=== PATIENT | male | born 1945 | race Caucasian/White ===

== ENCOUNTER 2016-12-22 12:28 | Inpatient (IN) ==
--- NOTE | 2016-12-22 12:53 | Emergency Department Note ---
Arrival - Arrival Chief Complaint: Nausea/Vomiting/Diarrhea Stated Complaint: NAUSEA-VOMITING ED Nursing Triage Note: FROM [facility]-PT WITH 3-DAY HX OF NAUSEA- VOMITING-DENIES DIARRHEA-PAIN Mode of Arrival: Stretcher Source: Patient Time Seen by Provider: 12/22/16 12:36 - History of Present Illness HPI Narrative: 71 y/o white male presents to the ER complaining of N/V and decreased appetite for 1-2 weeks. Reports he currently is in [facility] rehab after having a stroke on 12/06/16. Patient was instructed to come to come to ER to be admitted to see GI. Denies abdominal pain, fever, or urinary symptoms. Past medical history significant for CVA, cardiac stents, GERD, IDDM, and HTN. PCP: Dr. Dozier. Onset (ago): day(s) (3) Severity: mild Quality: cramping Allergies/Adverse Reactions: Allergies Allergy/AdvReac Type Severity Reaction Status Date / Time codeine Allergy Unknown/Unable Verified 12/01/16 07:53 to obtain Home Medications: Home Medications Medication Instructions Recorded Confirmed Type Insulin Aspart [NovoLOG] 16 unit SUBCUT TID W/MEALS 06/01/15 12/22/16 History Carvedilol [Coreg] 25 mg PO BID 10/09/15 12/22/16 History Latanoprost [Latanoprost 0.005 % 1 drop BOTH EYES BEDTIME 10/09/15 12/22/16 History Oph Soln] Cyanocobalamin (Vitamin B-12) 1,000 mcg PO DAILY 11/30/16 12/22/16 History [Vitamin B-12] Insulin Glargine,Hum.rec.anlog 56 units SUBCUT BEDTIME 12/01/16 12/22/16 History [Toujeo SoloStar] Aspirin EC Tab 81 mg PO DAILY #30 tablet 12/02/16 12/22/16 Rx Ticagrelor [Brilinta] 90 mg PO BID #60 tablet 12/02/16 12/22/16 Rx Brimonidine 0.1% Oph Soln 1 drop BOTH EYES TID 12/06/16 12/22/16 History [Alphagan P 0.1% Oph Soln] Docusate Sodium Cap [Colace Cap] 100 mg PO BID capsule 12/09/16 12/22/16 Rx Insulin Regular [HumuLIN R] See Protocol SUBCUT ACHS unit 12/09/16 12/22/16 Rx Lactulose Liquid [Chronulac] 10 gm PO DAILY PRN #0 12/09/16 12/22/16 Rx Sertraline [Zoloft] 100 mg PO DAILY tablet 12/09/16 12/22/16 Rx Zaleplon [Sonata] 5 mg PO BEDTIME capsule 12/09/16 12/22/16 Rx amLODIPine [Norvasc] 10 mg PO DAILY tablet 12/09/16 12/22/16 Rx Rosuvastatin Calcium 10 mg PO DAILY #0 12/21/16 12/22/16 Rx Review of System - Review of System 12 point system: reviewed and no additional remarkable complaints except as stated - Review of System Gastrointestinal: Present: nausea, vomiting Medical,Surgical,& Family Hx - Medical History Cardio: History of: CAD, Hypertension, PVD, Cardiovascular Problems No history of: Aneurysm, Cardiac Dysrhythmia, Cerebrovascular Disease, Congenital Heart Disease, CHF, [place], Pacemaker, Valvular Heart Disease Psychological: History of: Anxiety Disorders No history of: ADHD, Behavior Problems, Bipolar Disorder, Depression, Previous Suicide Attempt, Psychiatric/Substance Abuse Tx, Schizophrenia, Violent Behavior, Psychiatric Problems Neurology: History of: Peripheral Neuropathy, TIA No history of: Brain Aneurysm, Cerebral Hemorrhage, Cerebrovascular Accident , Cerebral Palsy, Dementia, Migraine, Multiple Sclerosis, Parkinson's Disease, Seizures, Vertigo, Neurologocal Cancer HEENT: History of: Eye Problem (macular degeneration), Glaucoma, HEENT Problems No history of: Ear Problem, Dental Problems, Oral Cancer Endocrine: History of: Diabetes Mellitus (IDDM), Dyslipidemia No history of: Adrenal Disease, Diabetes Mellitus (NIDDM), Thyroid Disorder, Endocrine Cancer, Endocrine Problems Rheumatology: No history of;: Fibromyalgia, Gout, Myasthenia Gravis, Psoriasis, Rheumatoid Arthritis, Sjogrens, Systemic Lupus Erythematosus, Rheumatological Problems Respiratory: No history of: Asthma, Bronchitis, COPD, Intubation, Obstructive Sleep Apnea , Pulmonary Embolism, Pulmonary Hypertension, Pneumonia, Lung Cancer, Respiratory Problems Renal: History of: Renal (Kidney) Cancer No history of: Dialysis, Renal Failure, Renal Problems Genitourinary: No history of: Bladder Problem, Kidney Stones, Prostate Problems, Recurring Urinary Tract Infections, Genitourinary Cancer (renal cell carcinoma), Problems Gastrointestinal: History of: Hemorrhoids No history of: Bowel Obstruction, Clostridium Difficile, Crohn's Disease, Diverticulitis/ Diverticulosis, Esophageal Varices, GERD, Gastrointestinal Bleed , Hematochezia, Hepatitis, Liver Problems, Pancreatitis, Polyps, Ulcerative Colitis, Gastrointestinal Cancer, GI Problems Musculoskeletal: History of: Back/Neck Problems (removed cysts from neck) No history of: Amputation, Degenerative Disk Disease, Herniated Disk, Osteoporosis, Musculoskeletal Cancer, Musculoskeletal Problems Hematology: No history of: Anemia, Blood Transfusion Reaction, Bleeding Problems, Clotting Problems, Sickle Cell Disease, Hematologic Cancer, Blood Disorders Reproductive: No histroy: Penile Disorder, Sexually Transmitted Disease, Reproductive Cancer, Reproductive Problems Other: History of: Cancer No history of: Anesthesia Reactions, Anaphylaxis, Eczema, HIV, Malignant Hyperthermia, MRSA, Vancomycin-Resistant Enterococci, Skin Problems, Miscellaneous Medical Problems - Surgical History Cardiac Surgeries: Sugical HX of: Cardiac Catheterization (stents x6) Patient Denies: Femoral-Popliteal Bypass Graft, Cardiac Surgery, Carotid Endarterectomy, Internal Defibrillator, Vascular Access Devices Thoracic Surgeries: Surgical HX of;: Kidney (Renal Surgery) (One kidney R/T Ca) , Nephrectomy Patient denies;: Lithotripsy, Organ Transplant, Lobectomy Neurologic Surgeries: Patient denies: Brain Aneurysm, Cerebral Hemorrhage, Neurologic Surgery HEENT Surgeries: Surgical HX of: Eye Surgery (bilateral cataracts removed with lens replacements) Patient denies: Carotid Endarterectomy, Thyroid Surgery, Tonsilectomy & Adenoidectomy Abdominal Surgeries: Surgical HX of: Colonoscopy, EGD Patient denies: Abdominal Surgery, Appendectomy, Cholecystectomy, Gastric Bypass Surgery, Hernia Repair, Splenectomy Reproductive Surgeries: Surgical HX of;: Breast Surgery, Cystoscopy, Genitourinary Surgery (left kidney removed) Patient denies;: Prostate Surgery, Vasectomy Orthopedic Surgeries: Patient denies;: Implanted Devices, Orthopedic Surgery, Spinal Surgery, Total Hip Replacement, Total Knee Replacement - Family History Family History: Reports;: Family Cancer (father had lung ca, mother breast ca,) , Family Diabetes (mother), Family Hypertension (mother) Denies;: Family Anesthesia Reaction, Family Heart Disease, Family Psychiatric Problems, Family Stroke - Social History Smoking Status: Former smoker Exam Vital Signs: Vital Signs Temperature 98.2 F 12/22/16 14:05 Pulse Rate 70 12/22/16 14:20 Respiratory Rate 20 12/22/16 14:20 Blood Pressure 142/83 12/22/16 14:20 O2 Sat by Pulse Oximetry 99 12/22/16 14:20 - General General appearance: alert, in no apparent distress - ENT ENT exam: Present: normal exam, normal oropharynx, mucous membranes moist - Chest Chest inspection: Present: normal inspection - Respiratory Respiratory exam: Present: normal lung sounds bilaterally - Cardiovascular Cardiovascular exam: Present: regular rate, normal rhythm, normal heart sounds - Abdominal Exam Abdominal exam: Present: soft, normal bowel sounds. Absent: tenderness - Extremities Exam Extremities exam: Present: normal inspection, full ROM - Back Exam Back exam: Absent: CVA tenderness (R), CVA tenderness (L) - Neurological Exam Neurological exam: Present: alert, oriented X3, other (left sided weakness- CVA 11/2016) - Psychiatric Psychiatric exam: Present: normal affect, normal mood - Skin Skin exam: Present: warm, dry Course - Consultations Consultation #1: Dr. Dozier Time: 14:35 (Discussed case with Dr. Dozier. Will admit patient ) Results - Labs CBC & BMP: 12/22/16 13:41 12/22/16 13:41 Lab Results: I have reviewed the patients labs Disposition Clinical Impression: Vomiting, Nausea, Anorexia Disposition: Still a Patient Condition: Stable
--- NOTE | 2016-12-22 13:26 | XRay Report ---
History: Nausea, vomiting, constipation Date: 12/22/2016 Study: Flat and decubitus views abdomen Comparison exam: No previous similar There is no evidence of pneumoperitoneum. The bowel gas pattern is nonobstructive without gross mass lesion. There is a 7.9 mm calcification compatible with renal stone overlying the lower pole of the right kidney. There is a column of small nodular calcifications over the right hemipelvis, measuring 5 mm diameter and less. These could represent stone fragments in the distal ureter. Surgical clips are noted in the left mid upper abdomen. There is mild lumbar spondylosis. Impression: Right nephrolithiasis and suspected distal right ureterolithiasis. No definite acute process otherwise PROCEDURE INTERPRETED AT [facility] DEPARTMENT OF RADIOLOGY Final Report Signed by: Dr. Poonam Love
--- NOTE | 2016-12-22 13:50 | EKG Report ---
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
[2016-12-22 13:54] LABS: Basophils % 0.3 % (0.0-0.8); Eosinophils # 0.1 10*3/uL (0.0-0.87); Eosinophils % 0.9 % (0.00-10.9); Hematocrit 42.4 VOL% (42.0-52.0); Hemoglobin 13.7 GM/DL (14.0-18.0); Immature Granulocytes % 0.5 %; Immature Granulocytes Absolute 0.06 #; Lymphocytes % 16.2 % (21.2-54.2); Mean Corpuscular HGB Conc 32.3 GM/DL (32-36); Mean Corpuscular Hemoglobin 27 PG (27-34); Mean Platelet Volume 9.8 FL (9.6-12.0); Monocytes # 0.8 10*3/uL (0.11-0.8); Monocytes % 6.6 % (1.7-12.7); Neutrophils # 9.5 10*3/uL (1.4-7.4); Neutrophils % 75.5 % (38.7-73.9); Platelet Count 298 T/CUMM (130-400); Red Blood Count 5.05 MC/CUMM (3.8-5.5); Red Cell Distribution Width 13.5 % (9.3-17.3); White Blood Count 12.6 T/CUMM (4-12)
[2016-12-22 14:02] LABS: Apearance,Urine Slightly Hazy (Clear); Bilirubin,Urine Negative (Negative); Blood, Urine Negative (Negative); Glucose,Urine (UA) 50 mg/dL (Negative); Ketones,Urine Negative (Negative); Mucus,Urine Occasional /LPF (Occasional); Nitrite,Urine Negative (Negative); Protein,Urine >=500 MG/DL; RBC,Urine <1 /HPF (0-4); Squamous Epithelial Cell,Urine Occasional /HPF (0-10); Urine Color Yellow (Yellow); Urine Specific Gravity 1.015 (1.001-1.035); Urine Urobilinogen < 2.0 EU/DL (0.2-1.0); WBC,Urine 1 /HPF (0-6)
[2016-12-22 14:16] LABS: Alanine Aminotransferase 44 U/L (16-61); Albumin 3.6 G/DL (3.4-5.0); Alkaline Phosphatase 85 U/L (45-117); Aspartate Amino Transferase 38 U/L (0-37); Bilirubin,Total < 0.39 MG/DL (0.2-1.0); Blood Urea Nitrogen 44 MG/DL (7-18); Calcium 9.6 MG/DL (8.5-10.1); Glucose 165 MG/DL (74-106); Osmolality,Calculated 282.2 MOS/KG (273-304); Sodium 134 MMOL/L (136-145); Total Protein 8.1 G/DL (6.4-8.3)
[2016-12-22] MEDS ORDERED: SODIUM CHLORIDE 0.9% 500 ML IV STA (14:27)
[2016-12-22] MEDS ORDERED: LACTULOSE 20 GM/30 ML UDCUP PO PRN (16:41)
[2016-12-22] MEDS ORDERED: ACETAMINOPHEN 500 MG TABLET PO PRN (16:41)
[2016-12-22] MEDS ORDERED: DEXTROSE 50% 25 GM/50 ML VIAL IV PRN (16:47)
[2016-12-22] MEDS ORDERED: GLUCAGON 1 MG VIAL IM PRN (16:47)
--- NOTE | 2016-12-22 17:20 | Family Practice History&Phys ---
Assessment and Plan (1) Nausea Status: Acute Assessment and plan: 12/22/2016: We will keep him on Zofran for now. I am going to hold him n.p.o. tonight and see if GI will to do an upper scope on him tomorrow Current Visit: Yes (2) Acute CVA (cerebrovascular accident) Status: Acute Assessment and plan: 12/22/2016: He is getting rehab for this is currently on a blood thinner to hopefully prevent recurrence. Current Visit: No (3) Alzheimer's dementia Status: Chronic Assessment and plan: 12/22/2016: He does have medication for Alzheimer's dementia. Current Visit: No (4) Cerebrovascular accident Status: Chronic Assessment and plan: 12/22/2016:. Stable now he does have some residual deficits particularly on his left arm and left leg Current Visit: No (5) Diabetes Status: Chronic Assessment and plan: 12/22/2016: We will put him on a sliding scale continue on current medications Current Visit: No History of Present Illness Chief complaint: Intractable nausea, abdominal discomfort, recurrent constipation History of present illness: Mr. Melendez is a 71 year old male A patient who is status post CVA involving the left side of the body including the left arm, left facial muscles and left leg. He on has been in rehab over the past approximately 2 weeks. Family states that he is been some belligerent about doing rehab and avoiding it if he can. In addition, he became constipated the latter part of last week. He did have a very strong and forceful bowel movement on Tuesday it was a "blowout". Since then he has not had another bowel movement and family is concerned that he may be having recurrent constipation but also now is having some nausea and refusing to eat. I did check his weight from the last visit and he has not lost any weight but family (his ) states that he has. He is not having any abdominal pain now but states that his "stomach has been hurting a lot lately". I do not appreciate any peritoneal signs. He does have bowel sounds but somewhat hypoactive. There is a little mild abdominal distention but the abdominal x- rays were essentially negative except for findings of possible right ureteral lithiasis. (Because of this I am going to go ahead and do a renal colic CT scan on him). His lab was normal including a CBC and a BMP and amylase. Because of this situation and the fact that they had to bring it back up here from rehab because he was having this recurrent nausea and going to admit him in get GI to see him for clarity. Also have already ordered some test on him. He is in no acute distress we will see how he eats tonight. Home Medications Medication Instructions Recorded Confirmed Type Insulin Aspart [NovoLOG] 16 unit SUBCUT TID W/MEALS 06/01/15 12/22/16 History Carvedilol [Coreg] 25 mg PO BID 10/09/15 12/22/16 History Latanoprost [Latanoprost 0.005 % 1 drop BOTH EYES BEDTIME 10/09/15 12/22/16 History Oph Soln] Cyanocobalamin (Vitamin B-12) 1,000 mcg PO DAILY 11/30/16 12/22/16 History [Vitamin B-12] Insulin Glargine,Hum.rec.anlog 56 units SUBCUT BEDTIME 12/01/16 12/22/16 History [Mildred Noble] Aspirin EC Tab 81 mg PO DAILY #30 tablet 12/02/16 12/22/16 Rx Ticagrelor [Brilinta] 90 mg PO BID #60 tablet 12/02/16 12/22/16 Rx Brimonidine 0.1% Oph Soln 1 drop BOTH EYES TID 12/06/16 12/22/16 History [Alphagan P 0.1% Oph Soln] Docusate Sodium Cap [Colace Cap] 100 mg PO BID capsule 12/09/16 12/22/16 Rx Insulin Regular [HumuLIN R] See Protocol SUBCUT ACHS unit 12/09/16 12/22/16 Rx Lactulose Liquid [Chronulac] 10 gm PO DAILY PRN #0 12/09/16 12/22/16 Rx Sertraline [Zoloft] 100 mg PO DAILY tablet 12/09/16 12/22/16 Rx Zaleplon [Sonata] 5 mg PO BEDTIME capsule 12/09/16 12/22/16 Rx amLODIPine [Norvasc] 10 mg PO DAILY tablet 12/09/16 12/22/16 Rx Rosuvastatin Calcium 10 mg PO DAILY #0 12/21/16 12/22/16 Rx Allergies Allergy/AdvReac Type Severity Reaction Status Date / Time codeine Allergy Unknown/Unable Verified 12/01/16 07:53 to obtain 12 point system: reviewed and no additional remarkable complaints except as stated (That mentioned in the history and physical.) - EENT Eyes: Absent: blurry vision - Cardiovascular Cardiovascular: Absent: diaphoresis - Gastrointestinal Gastrointestinal: Present: change in bowel habits, nausea. Absent: vomiting Medical,Surgical,& Family Hx - Medical History Cardio: History of: CAD, Hypertension, PVD, Cardiovascular Problems No history of: Aneurysm, Cardiac Dysrhythmia, Cerebrovascular Disease, Congenital Heart Disease, CHF, [place], Pacemaker, Valvular Heart Disease Psychological: History of: Anxiety Disorders No history of: ADHD, Behavior Problems, Bipolar Disorder, Depression, Previous Suicide Attempt, Psychiatric/Substance Abuse Tx, Schizophrenia, Violent Behavior, Psychiatric Problems Neurology: History of: Peripheral Neuropathy, TIA No history of: Brain Aneurysm, Cerebral Hemorrhage, Cerebrovascular Accident , Cerebral Palsy, Dementia, Migraine, Multiple Sclerosis, Parkinson's Disease, Seizures, Vertigo, Neurologocal Cancer HEENT: History of: Eye Problem (macular degeneration), Glaucoma, HEENT Problems No history of: Ear Problem, Dental Problems, Oral Cancer Endocrine: History of: Diabetes Mellitus (IDDM), Dyslipidemia No history of: Adrenal Disease, Diabetes Mellitus (NIDDM), Thyroid Disorder, Endocrine Cancer, Endocrine Problems Rheumatology: No history of;: Fibromyalgia, Gout, Myasthenia Gravis, Psoriasis, Rheumatoid Arthritis, Sjogrens, Systemic Lupus Erythematosus, Rheumatological Problems Respiratory: No history of: Asthma, Bronchitis, COPD, Intubation, Obstructive Sleep Apnea , Pulmonary Embolism, Pulmonary Hypertension, Pneumonia, Lung Cancer, Respiratory Problems Renal: History of: Renal (Kidney) Cancer No history of: Dialysis, Renal Failure, Renal Problems Genitourinary: No history of: Bladder Problem, Kidney Stones, Prostate Problems, Recurring Urinary Tract Infections, Genitourinary Cancer (renal cell carcinoma), Problems Gastrointestinal: History of: Hemorrhoids No history of: Bowel Obstruction, Clostridium Difficile, Crohn's Disease, Diverticulitis/ Diverticulosis, Esophageal Varices, GERD, Gastrointestinal Bleed , Hematochezia, Hepatitis, Liver Problems, Pancreatitis, Polyps, Ulcerative Colitis, Gastrointestinal Cancer, GI Problems Musculoskeletal: History of: Back/Neck Problems (removed cysts from neck) No history of: Amputation, Degenerative Disk Disease, Herniated Disk, Osteoporosis, Musculoskeletal Cancer, Musculoskeletal Problems Hematology: No history of: Anemia, Blood Transfusion Reaction, Bleeding Problems, Clotting Problems, Sickle Cell Disease, Hematologic Cancer, Blood Disorders Reproductive: No histroy: Penile Disorder, Sexually Transmitted Disease, Reproductive Cancer, Reproductive Problems Other: History of: Cancer No history of: Anesthesia Reactions, Anaphylaxis, Eczema, HIV, Malignant Hyperthermia, MRSA, Vancomycin-Resistant Enterococci, Skin Problems, Miscellaneous Medical Problems - Surgical History Cardiac Surgeries: Sugical HX of: Cardiac Catheterization (stents x6) Patient Denies: Femoral-Popliteal Bypass Graft, Cardiac Surgery, Carotid Endarterectomy, Internal Defibrillator, Vascular Access Devices Thoracic Surgeries: Surgical HX of;: Kidney (Renal Surgery) (One kidney R/T Ca) , Nephrectomy Patient denies;: Lithotripsy, Organ Transplant, Lobectomy Neurologic Surgeries: Patient denies: Brain Aneurysm, Cerebral Hemorrhage, Neurologic Surgery HEENT Surgeries: Surgical HX of: Eye Surgery (bilateral cataracts removed with lens replacements) Patient denies: Carotid Endarterectomy, Thyroid Surgery, Tonsilectomy & Adenoidectomy Abdominal Surgeries: Surgical HX of: Colonoscopy, EGD Patient denies: Abdominal Surgery, Appendectomy, Cholecystectomy, Gastric Bypass Surgery, Hernia Repair, Splenectomy Reproductive Surgeries: Surgical HX of;: Breast Surgery, Cystoscopy, Genitourinary Surgery (left kidney removed) Patient denies;: Prostate Surgery, Vasectomy Orthopedic Surgeries: Patient denies;: Implanted Devices, Orthopedic Surgery, Spinal Surgery, Total Hip Replacement, Total Knee Replacement - Family History Family History: Reports;: Family Cancer (father had lung ca, mother breast ca,) , Family Diabetes (mother), Family Hypertension (mother) Denies;: Family Anesthesia Reaction, Family Heart Disease, Family Psychiatric Problems, Family Stroke - Social History Smoking Status: Former smoker Frequency of Alcohol Use: None Type of Drug Use: None Results - Labs CBC & BMP: 12/22/16 13:41 12/22/16 13:41 Quality Measures - Stroke Onset of Symptoms Date: 12/20/16
[2016-12-22] MEDS: INSULIN LISPRO 100 UNIT/ML SUBCUT SCH ×2 (17:26→21:23)
[2016-12-22] MEDS: SODIUM CHLORIDE 0.9% 1,000 ML IV SCH (19:07)
[2016-12-22] MEDS ORDERED: INSULIN REGULAR 100 UNIT/ML SUBCUT SCH (21:00)
[2016-12-22] MEDS: INSULIN GLARGINE 100 UNIT/ML SUBCUT SCH (21:23)
[2016-12-22] MEDS: ZALEPLON 5 MG CAPSULE PO SCH (21:24)
[2016-12-22] MEDS: TICAGRELOR 90 MG TABLET PO SCH (21:25)
[2016-12-22] MEDS: DOCUSATE SODIUM 100 MG CAPSULE PO SCH (21:25)
[2016-12-22] MEDS: CARVEDILOL 25 MG TABLET PO SCH (21:25)
[2016-12-22] MEDS: BRIMONIDINE 0.1% OPH SOLN 5 ML BOTTLE BOTH EYES SCH (21:29)
[2016-12-22] MEDS: LATANOPROST 0.005% OPH SOLN 2.5 ML BOTTLE BOTH EYES SCH (21:29)
[2016-12-23] MEDS: SODIUM CHLORIDE 0.9% 1,000 ML IV SCH ×3 (03:06→22:41)
[2016-12-23] MEDS: ONDANSETRON 4 MG/2 ML VIAL IV PRN (06:08)
--- NOTE | 2016-12-23 06:14 | CT Report ---
CT of the abdomen without intravenous contrast. Indication: Urinary tract calculi. Axial images were obtained with sagittal and coronal reconstructions. Comparison is made with a previous CT angiogram of the abdomen dated May 29, 2015. Note that the pelvis is not included on this exam, so the distal ureter is not visualized. The heart is normal in size. Coronary artery calcifications are present. There is no pericardial or pleural effusion. There is atelectasis in the left lingula. There is a calcified granuloma in the right middle lobe. The liver is normal in size. The spleen is normal in size. It contains multiple calcified granulomas. The left kidney has been removed. The left adrenal gland is not delineated. It may be partially obscured by streak artifact from numerous surgical clips in the renal fossa. Alternatively, it may have been removed as well. The right adrenal gland has a normal appearance. The right kidney is normal in size, location, and contour. Within a lower pole calyx, there is a 9 mm calculus. No hydronephrosis. No hydroureter. No evidence of stone in the included portions of the right ureter. There is atrophy of portions of the pancreas. No pancreatic ductal dilatation. No pancreatic calcifications, or space occupying masses. There is moderate plaque in a normal caliber abdominal aorta. No free air or free fluid seen. No bowel dilatation. Mild degenerative changes of the spinal column. Umbilical hernia containing only fat. Impression: Right nephrolithiasis. No hydronephrosis. The CT exam was performed using one or more of the following dose reduction techniques: Automated exposure control, adjustmenT of the mA and/or kV according to patient size, or use of iterative reconstruction technique. PROCEDURE INTERPRETED AT [facility] DEPARTMENT OF RADIOLOGY Final Report Signed by: Dr. Karon Ely
[2016-12-23 07:41] LABS: Basophils % 0.4 % (0.0-0.8); Eosinophils # 0.2 10*3/uL (0.0-0.87); Eosinophils % 1.8 % (0.00-10.9); Hematocrit 41.7 VOL% (42.0-52.0); Hemoglobin 13.1 GM/DL (14.0-18.0); Immature Granulocytes % 0.4 %; Immature Granulocytes Absolute 0.04 #; Lymphocytes # 2.5 10*3/uL (1.4-4.0); Lymphocytes % 22.2 % (21.2-54.2); Mean Corpuscular HGB Conc 31.4 GM/DL (32-36); Mean Corpuscular Hemoglobin 27 PG (27-34); Mean Corpuscular Volume 84.2 FL (87-102); Mean Platelet Volume 10.3 FL (9.6-12.0); Monocytes # 0.8 10*3/uL (0.11-0.8); Monocytes % 6.8 % (1.7-12.7); Neutrophils # 7.7 10*3/uL (1.4-7.4); Neutrophils % 68.4 % (38.7-73.9); Platelet Count 252 T/CUMM (130-400); Red Blood Count 4.95 MC/CUMM (3.8-5.5); Red Cell Distribution Width 13.5 % (9.3-17.3); White Blood Count 11.2 T/CUMM (4-12)
[2016-12-23] MEDS: INSULIN LISPRO 100 UNIT/ML SUBCUT SCH ×7 (08:00→22:11)
[2016-12-23 08:15] LABS: Calcium 8.8 MG/DL (8.5-10.1); Osmolality,Calculated 290.3 MOS/KG (273-304); Potassium 4.8 MMOL/L (3.5-5.1)
[2016-12-23] MEDS: BRIMONIDINE 0.1% OPH SOLN 5 ML BOTTLE BOTH EYES SCH ×3 (09:00→20:42)
--- NOTE | 2016-12-23 10:17 | Family Practice Progress Note ---
Family Practice - PN: Subj Interval history: Patient seen this morning. He is alert and oriented for the most part. (Does have some dementia, in general). Vital signs are stable, satting 94% and weight is stable as well. He has a glucose of 118 and his CBC is normal, BMP is normal except for elevation of creatinine however this is improving day by day. Because he had possible ureterolithiasis on x-ray we did do a CAT scan renal colic which did not reveal any hydronephrosis although he has nephrolithiasis. There were no obvious stones in the ureter on this study. Today complaining of just feeling "nauseated" and some abdominal bloating. He has been eating well he has not had any vomiting and admits that he is passing gas well. Has not had a bowel movement since he has been here on the [facility]. Denies any fever and is not been having any chills. He has had these same symptoms down L in the [facility] and so I am going to get a GI consult today to see if they have any idea of what we can do to resolve some of his nausea. We are giving him antiemetics to try to help this without great success Exam (Progress Note) - Constitutional Vitals: Period Temp Pulse Resp BP Sys/Garza Pulse Ox Last 24 Hr 97.7 F-98.0 F 71-76 18-20 115-164/60-71 93-95 Exam: Generally stable, no acute distress except for the mild abdominal/diffuse discomfort. HEENT neck is supple trachea midline oropharynx is negative Cardiovascular rate is regular no gallop or rub 1/6 systolic ejection murmur Lungs generally clear no shortness of breath Abdomen soft mild diffuse tenderness only no peritoneal signs and no focal point tenderness. He has positive bowel sounds in all 4 quadrants. Extremities no clubbing cyanosis edema positive radial pulses bilateral upper extremities. Neurologically he does have left-sided deficits including the upper and lower extremities. His facial drooping has much improved Results - Labs CBC & BMP: 12/23/16 06:30 12/23/16 06:30 Assessment and Plan (1) Nausea Status: Acute Assessment and plan: 12/22/2016: We will keep him on Zofran for now. I am going to hold him n.p.o. tonight and see if GI will to do an upper scope on him tomorrow 12/23/2016 continues to have nausea. We are going to get a GI consult on, some of this could be related to medications including Brilinta, but unsure Current Visit: Yes (2) Acute CVA (cerebrovascular accident) Status: Acute Assessment and plan: 12/22/2016: He is getting rehab for this is currently on a blood thinner to hopefully prevent recurrence. 12/23/2016: This is stable at present. He continues to have some left-sided deficits which are at least subacute and may become chronic Current Visit: No (3) Alzheimer's dementia Status: Chronic Assessment and plan: 12/22/2016: He does have medication for Alzheimer's dementia. Current Visit: No (4) Cerebrovascular accident Status: Chronic Assessment and plan: 12/22/2016:. Stable now he does have some residual deficits particularly on his left arm and left leg Current Visit: No (5) Diabetes Status: Chronic Assessment and plan: 12/22/2016: We will put him on a sliding scale continue on current medications Current Visit: No Quality Measures - Stroke Onset of Symptoms Date: 12/20/16
--- NOTE | 2016-12-23 11:21 | Gastrointestinal Consult Note ---
Assessment and Plan (1) Nausea Status: Acute Assessment and plan: 5/4-to 3 week history of nausea without emesis. Complaints of vague abdominal discomfort/pain at times with meals. No history of peptic ulcer disease. Obtain gallbladder ultrasound today. Start clear liquid diet following ultrasound. Further plan an addendum to followed by Dr. Love. Current Visit: Yes History of Present Illness Chief complaint: Persistent nausea History of present illness: Mr. Melendez is a 71 year old male who was admitted to our facility on yesterday with complaints of intractable nausea and abdominal discomfort. Patient has been inpatient at [facility] for rehab therapy following a CVA that occurred approximately 3 weeks ago. Patient's states that the Tuesday before patient had cardiac stents placed in 5 days later he had a CVA. He was started on Brilinta at that time and was discharged to [facility] for continued physical therapy. Patient states that for the last 2-3 weeks he has had persistent nausea that followed after those events. He denies any vomiting with the nausea but states every time he moves or tries to eat he becomes nauseated and this has prevented him from taking in very much oral nutrition. He does complain of some mild dizziness however states this is not necessarily associated with nausea. He was taking Bactrim, per patient, for UTI a couple weeks ago and states they felt this was causing his nausea and it was stopped however the symptoms were not relieved. He denies any abdominal pain but just has complaints of abdominal discomfort when he is nauseated. He has had some episodes of constipation however states he had a large bowel movement on yesterday and denies any melena or hematochezia associated with this. He denies any history of peptic ulcer disease. Denies any dysphagia or odynophagia. Denies any peptic ulcer disease in his history. Denies family history of gallbladder disease. Denies any recent weight loss, fever or chills. He did initially have some complaints of abdominal pain that seemed to be worse when he did eat however he is not currently complaining of that. He is diabetic however his blood sugars have been very well controlled per who is at bedside. His last EGD was done in 2006 with findings of esophageal stricture with dilation and hiatal hernia. His last C scope was done in 2002 with no abnormal findings noted. On admission he was found to have right nephrolithiasis without hydronephrosis. BUN/creatinine ratio is 20. Home Medications Medication Instructions Recorded Confirmed Type Insulin Aspart [NovoLOG] 16 unit SUBCUT TID W/MEALS 06/01/15 12/22/16 History Carvedilol [Coreg] 25 mg PO BID 10/09/15 12/22/16 History Latanoprost [Latanoprost 0.005 % 1 drop BOTH EYES BEDTIME 10/09/15 12/22/16 History Oph Soln] Cyanocobalamin (Vitamin B-12) 1,000 mcg PO DAILY 11/30/16 12/22/16 History [Vitamin B-12] Insulin Glargine,Hum.rec.anlog 56 units SUBCUT BEDTIME 12/01/16 12/22/16 History [Mildred Noble] Aspirin EC Tab 81 mg PO DAILY #30 tablet 12/02/16 12/22/16 Rx Ticagrelor [Brilinta] 90 mg PO BID #60 tablet 12/02/16 12/22/16 Rx Brimonidine 0.1% Oph Soln 1 drop BOTH EYES TID 12/06/16 12/22/16 History [Alphagan P 0.1% Oph Soln] Docusate Sodium Cap [Colace Cap] 100 mg PO BID capsule 12/09/16 12/22/16 Rx Insulin Regular [HumuLIN R] See Protocol SUBCUT ACHS unit 12/09/16 12/22/16 Rx Lactulose Liquid [Chronulac] 10 gm PO DAILY PRN #0 12/09/16 12/22/16 Rx Sertraline [Zoloft] 100 mg PO DAILY tablet 12/09/16 12/22/16 Rx Zaleplon [Sonata] 5 mg PO BEDTIME capsule 12/09/16 12/22/16 Rx amLODIPine [Norvasc] 10 mg PO DAILY tablet 12/09/16 12/22/16 Rx Rosuvastatin Calcium 10 mg PO DAILY #0 12/21/16 12/22/16 Rx Allergies Allergy/AdvReac Type Severity Reaction Status Date / Time codeine Allergy Unknown/Unable Verified 12/01/16 07:53 to obtain Medical,Surgical,& Family Hx - Medical History Cardio: History of: CAD, Hypertension, PVD, Cardiovascular Problems No history of: Aneurysm, Cardiac Dysrhythmia, Cerebrovascular Disease, Congenital Heart Disease, CHF, VT, Pacemaker, Valvular Heart Disease Psychological: History of: Anxiety Disorders No history of: ADHD, Behavior Problems, Bipolar Disorder, Depression, Previous Suicide Attempt, Psychiatric/Substance Abuse Tx, Schizophrenia, Violent Behavior, Psychiatric Problems Neurology: History of: Peripheral Neuropathy, TIA No history of: Brain Aneurysm, Cerebral Hemorrhage, Cerebrovascular Accident , Cerebral Palsy, Dementia, Migraine, Multiple Sclerosis, Parkinson's Disease, Seizures, Vertigo, Neurologocal Cancer HEENT: History of: Eye Problem (macular degeneration), Glaucoma, HEENT Problems No history of: Ear Problem, Dental Problems, Oral Cancer Endocrine: History of: Diabetes Mellitus (IDDM), Dyslipidemia No history of: Adrenal Disease, Diabetes Mellitus (NIDDM), Thyroid Disorder, Endocrine Cancer, Endocrine Problems Rheumatology: No history of;: Fibromyalgia, Gout, Myasthenia Gravis, Psoriasis, Rheumatoid Arthritis, Sjogrens, Systemic Lupus Erythematosus, Rheumatological Problems Respiratory: No history of: Asthma, Bronchitis, COPD, Intubation, Obstructive Sleep Apnea , Pulmonary Embolism, Pulmonary Hypertension, Pneumonia, Lung Cancer, Respiratory Problems Renal: History of: Renal (Kidney) Cancer No history of: Dialysis, Renal Failure, Renal Problems Genitourinary: No history of: Bladder Problem, Kidney Stones, Prostate Problems, Recurring Urinary Tract Infections, Genitourinary Cancer (renal cell carcinoma), Problems Gastrointestinal: History of: Hemorrhoids No history of: Bowel Obstruction, Clostridium Difficile, Crohn's Disease, Diverticulitis/ Diverticulosis, Esophageal Varices, GERD, Gastrointestinal Bleed , Hematochezia, Hepatitis, Liver Problems, Pancreatitis, Polyps, Ulcerative Colitis, Gastrointestinal Cancer, GI Problems Musculoskeletal: History of: Back/Neck Problems (removed cysts from neck) No history of: Amputation, Degenerative Disk Disease, Herniated Disk, Osteoporosis, Musculoskeletal Cancer, Musculoskeletal Problems Hematology: No history of: Anemia, Blood Transfusion Reaction, Bleeding Problems, Clotting Problems, Sickle Cell Disease, Hematologic Cancer, Blood Disorders Reproductive: No histroy: Penile Disorder, Sexually Transmitted Disease, Reproductive Cancer, Reproductive Problems Other: History of: Cancer No history of: Anesthesia Reactions, Anaphylaxis, Eczema, HIV, Malignant Hyperthermia, MRSA, Vancomycin-Resistant Enterococci, Skin Problems, Miscellaneous Medical Problems - Surgical History Cardiac Surgeries: Sugical HX of: Cardiac Catheterization (stents x6) Patient Denies: Femoral-Popliteal Bypass Graft, Cardiac Surgery, Carotid Endarterectomy, Internal Defibrillator, Vascular Access Devices Thoracic Surgeries: Surgical HX of;: Kidney (Renal Surgery) (One kidney R/T Ca) , Nephrectomy Patient denies;: Lithotripsy, Organ Transplant, Lobectomy Neurologic Surgeries: Patient denies: Brain Aneurysm, Cerebral Hemorrhage, Neurologic Surgery HEENT Surgeries: Surgical HX of: Eye Surgery (bilateral cataracts removed with lens replacements) Patient denies: Carotid Endarterectomy, Thyroid Surgery, Tonsilectomy & Adenoidectomy Abdominal Surgeries: Surgical HX of: Colonoscopy, EGD Patient denies: Abdominal Surgery, Appendectomy, Cholecystectomy, Gastric Bypass Surgery, Hernia Repair, Splenectomy Reproductive Surgeries: Surgical HX of;: Breast Surgery, Cystoscopy, Genitourinary Surgery (left kidney removed) Patient denies;: Prostate Surgery, Vasectomy Orthopedic Surgeries: Patient denies;: Implanted Devices, Orthopedic Surgery, Spinal Surgery, Total Hip Replacement, Total Knee Replacement - Family History Family History: Reports;: Family Cancer (father had lung ca, mother breast ca,) , Family Diabetes (mother), Family Hypertension (mother) Denies;: Family Anesthesia Reaction, Family Heart Disease, Family Psychiatric Problems, Family Stroke - Social History Smoking Status: Former smoker Frequency of Alcohol Use: None Type of Drug Use: None 12 point system: reviewed and no additional remarkable complaints except as stated - Constitutional Constitutional: Present: as per HPI - EENT Eyes: Present: as per HPI Ears: Present: as per HPI Nose, mouth and throat: Present: as per HPI - Cardiovascular Cardiovascular: Present: as per HPI - Respiratory Respiratory: Present: as per HPI - Gastrointestinal Gastrointestinal: Present: as per HPI, nausea - Genitourinary Genitourinary: Present: as per HPI - Musculoskeletal Musculoskeletal: Present: as per HPI - Neurological Neurological: Present: as per HPI - Psychiatric Psychiatric: Present: as per HPI - Endocrine Endocrine: Present: as per HPI - Hematologic/Lymphatic Hematologic/Lymphatic: Present: as per HPI Exam - Constitutional Vitals: Period Temp Pulse Resp BP Sys/Garza Pulse Ox Last 24 Hr 97.7 F-98.0 F 71-76 18-20 115-164/60-71 93-95 General appearance: normal weight, no acute distress - Head Head exam: Present: normal inspection, normocephalic - Eye Eye exam: Present: other (Lids and conjunctivae unremarkable). Absent: scleral icterus - ENT ENT exam: Present: normal exam, normal oropharynx - Neck Neck exam: Present: normal inspection - Respiratory Respiratory exam: Present: clear to auscultation bilaterally. Absent: rales, rhonchi, wheezes - Cardiovascular Cardiovascular exam: Present: regular rate and rhythm. Absent: diastolic murmur , JVD, systolic murmur - GI/Abdominal GI/Abdominal exam: Present: normal bowel sounds, soft. Absent: ascites, distended, mass, organomegaly, tenderness - Extremities Exam Extremities exam: Present: normal inspection, full ROM - Back Exam Back exam: Present: normal inspection - Neurological Exam Neurological exam: Present: alert, oriented X3 - Psychiatric Psychiatric exam: Present: normal affect, normal mood - Skin Skin exam: Present: normal color, warm, dry Results - Labs CBC & BMP: 12/23/16 06:30 12/23/16 06:30 Lab Results: I have reviewed the past 24 hour labs Quality Measures - Stroke Onset of Symptoms Date: 12/20/16
[2016-12-23] MEDS: CARVEDILOL 25 MG TABLET PO SCH ×2 (13:59→20:42)
[2016-12-23] MEDS: DOCUSATE SODIUM 100 MG CAPSULE PO SCH ×2 (13:59→20:42)
[2016-12-23] MEDS: TICAGRELOR 90 MG TABLET PO SCH (13:59)
[2016-12-23] MEDS: ASPIRIN EC 81 MG TABLET PO SCH (14:24)
[2016-12-23] MEDS: amLODIPine 10 MG TABLET PO SCH (14:25)
[2016-12-23] MEDS: CYANOCOBALAMIN 500 MCG TABLET PO SCH (14:25)
[2016-12-23] MEDS: ROSUVASTATIN 10 MG TABLET PO SCH (14:25)
[2016-12-23] MEDS: SERTRALINE 100 MG TABLET PO SCH (14:25)
--- NOTE | 2016-12-23 15:00 | Ultrasound Report ---
Gallbladder ultrasound. Indication: The liver is normal in size and parenchymal echogenicity. No focal liver lesions are identified. No gallstones are seen. There is no gallbladder wall thickening or fluid around the gallbladder. The common duct measures 4.5 mm. The right kidney has a normal appearance. The pancreas has a normal appearance. Impression: No abnormality is seen. PROCEDURE INTERPRETED AT [facility] DEPARTMENT OF RADIOLOGY Final Report Signed by: Dr. Karon Ely
[2016-12-23] MEDS ORDERED: CLOPIDOGREL 75 MG TABLET PO ONE (17:25)
[2016-12-23] MEDS: ZALEPLON 5 MG CAPSULE PO SCH (20:42)
[2016-12-23] MEDS: INSULIN GLARGINE 100 UNIT/ML SUBCUT SCH (22:42)
[2016-12-24] MEDS: LATANOPROST 0.005% OPH SOLN 2.5 ML BOTTLE BOTH EYES SCH ×2 (00:01→21:49)
[2016-12-24] MEDS: SODIUM CHLORIDE 0.9% 1,000 ML IV SCH ×3 (05:31→21:34)
[2016-12-24] MEDS: ONDANSETRON 4 MG/2 ML VIAL IV PRN (08:01)
[2016-12-24] MEDS: INSULIN LISPRO 100 UNIT/ML SUBCUT SCH ×7 (08:06→21:54)
[2016-12-24] MEDS: BRIMONIDINE 0.1% OPH SOLN 5 ML BOTTLE BOTH EYES SCH ×3 (08:51→21:50)
[2016-12-24] MEDS: ROSUVASTATIN 10 MG TABLET PO SCH (08:52)
[2016-12-24] MEDS: ASPIRIN EC 81 MG TABLET PO SCH (08:52)
[2016-12-24] MEDS: CLOPIDOGREL 75 MG TABLET PO SCH (08:52)
[2016-12-24] MEDS: CYANOCOBALAMIN 500 MCG TABLET PO SCH (08:52)
[2016-12-24] MEDS: SERTRALINE 100 MG TABLET PO SCH (08:52)
[2016-12-24] MEDS: amLODIPine 10 MG TABLET PO SCH (08:52)
[2016-12-24] MEDS: DOCUSATE SODIUM 100 MG CAPSULE PO SCH ×2 (08:53→21:51)
[2016-12-24] MEDS: CARVEDILOL 25 MG TABLET PO SCH ×2 (08:53→21:49)
--- NOTE | 2016-12-24 09:52 | Gastrointestinal Progress Note ---
Assessment and Plan (1) Nausea Status: Acute Assessment and plan: 12/24-Nausea improved with one episode this morning. Tolerating diet a little more. Plan and addendum to follow by Dr Love. 12/23-to 3 week history of nausea without emesis. Complaints of vague abdominal discomfort/pain at times with meals. No history of peptic ulcer disease. Obtain gallbladder ultrasound today. Start clear liquid diet following ultrasound. Further plan an addendum to followed by Dr. Love. Current Visit: Yes Gastroenterology - PN: Subj Interval history: CC: Nausea Pt is seen, awake and alert lying in bed. States he is feeling a little better today. He did have one episode of nausea this morning trying to get on and off the bedpan. His Brilinta was stopped and Plavix stated on yesterday. Abd US was negative for acute findings. Abdomen is soft, nontender. Tolerating soft diet at present time. ROS: Denies SOB or chest pain Exam (Progress Note) - Constitutional Vitals: Period Temp Pulse Resp BP Sys/Garza Pulse Ox Last 24 Hr 97.3 F-98.4 F 69-91 20-20 129-155/66-87 94-97 General appearance: normal weight, no acute distress - Head Head exam: Present: normal inspection, normocephalic - Eye Eye exam: Present: other (lids and conjunctiva unremarkable). Absent: scleral icterus - ENT ENT exam: Present: normal exam, normal oropharynx - Neck Neck exam: Present: normal inspection - Respiratory Respiratory exam: Present: clear to auscultation bilaterally. Absent: rales, rhonchi, wheezes - Cardiovascular Cardiovascular exam: Present: regular rate and rhythm. Absent: diastolic murmur , JVD, systolic murmur - GI/Abdominal GI/Abdominal exam: Present: normal bowel sounds, soft. Absent: ascites, distended, mass, organomegaly, tenderness - Extremities Exam Extremities exam: Present: normal inspection, full ROM - Back Exam Back exam: Present: normal inspection - Neurological Exam Neurological exam: Present: alert, oriented X3 - Psychiatric Psychiatric exam: Present: normal affect, normal mood - Skin Skin exam: Present: normal color, warm, dry Results - Labs CBC & BMP: 12/23/16 06:30 12/23/16 06:30 Lab Results: I have reviewed the past 24 hour labs
[2016-12-24] MEDS: ZALEPLON 5 MG CAPSULE PO SCH (21:49)
[2016-12-24] MEDS: INSULIN GLARGINE 100 UNIT/ML SUBCUT SCH (21:51)
[2016-12-25] MEDS: SODIUM CHLORIDE 0.9% 1,000 ML IV SCH ×3 (05:14→21:16)
[2016-12-25] MEDS: INSULIN LISPRO 100 UNIT/ML SUBCUT SCH ×7 (08:22→22:41)
[2016-12-25] MEDS: ONDANSETRON 4 MG/2 ML VIAL IV PRN (08:52)
[2016-12-25] MEDS: CYANOCOBALAMIN 500 MCG TABLET PO SCH (09:00)
[2016-12-25] MEDS: ROSUVASTATIN 10 MG TABLET PO SCH (09:01)
[2016-12-25] MEDS: DOCUSATE SODIUM 100 MG CAPSULE PO SCH ×2 (09:01→22:43)
[2016-12-25] MEDS: SERTRALINE 100 MG TABLET PO SCH (09:01)
[2016-12-25] MEDS: amLODIPine 10 MG TABLET PO SCH (09:01)
[2016-12-25] MEDS: CLOPIDOGREL 75 MG TABLET PO SCH (09:01)
[2016-12-25] MEDS: CARVEDILOL 25 MG TABLET PO SCH ×2 (09:01→22:41)
[2016-12-25] MEDS: ASPIRIN EC 81 MG TABLET PO SCH (09:01)
[2016-12-25] MEDS: BRIMONIDINE 0.1% OPH SOLN 5 ML BOTTLE BOTH EYES SCH ×3 (09:02→22:40)
--- NOTE | 2016-12-25 11:01 | Internal Med Progress Note ---
Assessment and Plan (1) Nausea Status: Acute Assessment and plan: 71-year-old male admitted to acute care * Intractable nausea. He is doing better. Annabelle time Plavix was stopped. He is tolerating soft diet * Recent CVA. Left-sided weakness * Hypertension. Stable * Diabetes. Continue current treatment * Will check electrolytes in the morning Current Visit: Yes (2) Vomiting Status: Acute Current Visit: Yes (3) Acute CVA (cerebrovascular accident) Status: Acute Current Visit: No (4) Alzheimer's dementia Status: Chronic Current Visit: No (5) Hyperlipidemia Status: Chronic Current Visit: No (6) Hypertension Status: Chronic Current Visit: No (7) Hypothyroidism Status: Chronic Current Visit: No Internal Medicine - PN: Subj Interval history: He is feeling better this morning. He states he did not have any nausea today. He kept his breakfast down. Exam (Progress Note) - Constitutional Vitals: Period Temp Pulse Resp BP Sys/Garza Pulse Ox Last 24 Hr 97.1 F-98.4 F 72-120 20-22 131-158/59-78 96-100 General appearance: over weight - Head Head exam: Present: normal inspection - Eye Eye exam: Present: EOMI Pupils: Present: DARYL - Neck Neck exam: Present: normal inspection - Respiratory Respiratory exam: Present: clear to auscultation bilaterally - Cardiovascular Cardiovascular exam: Present: regular rate and rhythm - GI/Abdominal GI/Abdominal exam: Present: normal bowel sounds, soft. Absent: tenderness - Extremities Exam Extremities exam: Present: normal inspection. Absent: edema - Neurological Exam Neurological exam: Present: other (Left-sided weakness) Results - Labs CBC & BMP: 12/23/16 06:30 12/23/16 06:30 Quality Measures - Stroke Onset of Symptoms Date: 12/20/16
--- NOTE | 2016-12-25 12:08 | Gastrointestinal Progress Note ---
Assessment and Plan (1) Nausea and vomiting Status: Acute Assessment and plan: I am covering this patient for Dr. Love who is off this weekend. The patient is having mild residual nausea approximately approximately 4 out of 10 in intensity. He does not like the food here at the hospital is having some brought in by family member. He has no epigastric tenderness, reflux, or other GI complaints. He does not have any residual dysphagia but had previously had a esophageal stricture that required dilation. Current Visit: Yes (2) History of esophageal stricture Status: Acute Assessment and plan: No further dysphagia at this time, no repeated dilation required. Current Visit: Yes (3) Hiatal hernia Status: Acute Assessment and plan: Reflux is currently under control. Current Visit: Yes Gastroenterology - PN: Subj Interval history: This is a patient Dr. Love that I am seeing over the weekend while he is off. Gurvinder states that his nausea is improved. He gives it a rating of 4 out of 10 in intensity at this time. He is not having any reflux issues, vomiting, abdominal pain, diarrhea, or constipation. He does not state that he is having any dizziness today. Exam (Progress Note) - Constitutional Vitals: Period Temp Pulse Resp BP Sys/Garza Pulse Ox Last 24 Hr 97.1 F-98.4 F 72-120 20-22 131-158/59-78 96-100 General appearance: no acute distress - Head Head exam: Present: normocephalic - Eye Eye exam: Present: EOMI - ENT ENT exam: Present: normal exam - Respiratory Respiratory exam: Present: clear to auscultation bilaterally. Absent: rhonchi, stridor, wheezes - Cardiovascular Cardiovascular exam: Present: regular rate and rhythm - GI/Abdominal GI/Abdominal exam: Present: normal bowel sounds, soft. Absent: ascites, distended, rebound - Neurological Exam Neurological exam: Present: alert, oriented X3 - Psychiatric Psychiatric exam: Present: normal affect, normal mood - Skin Skin exam: Present: warm Results - Labs CBC & BMP: 12/23/16 06:30 12/23/16 06:30
[2016-12-25] MEDS: LATANOPROST 0.005% OPH SOLN 2.5 ML BOTTLE BOTH EYES SCH (22:40)
[2016-12-25] MEDS: ZALEPLON 5 MG CAPSULE PO SCH (22:41)
[2016-12-25] MEDS: INSULIN GLARGINE 100 UNIT/ML SUBCUT SCH (22:42)
[2016-12-26] MEDS: SODIUM CHLORIDE 0.9% 1,000 ML IV SCH (04:58)
[2016-12-26 06:51] LABS: Basophils # 0.1 10*3/uL (0.0-0.2); Basophils % 0.5 % (0.0-0.8); Eosinophils # 0.3 10*3/uL (0.0-0.87); Eosinophils % 2.6 % (0.00-10.9); Hematocrit 37.6 VOL% (42.0-52.0); Immature Granulocytes % 0.4 %; Immature Granulocytes Absolute 0.04 #; Lymphocytes # 2.5 10*3/uL (1.4-4.0); Lymphocytes % 23.4 % (21.2-54.2); Mean Corpuscular HGB Conc 31.9 GM/DL (32-36); Mean Corpuscular Hemoglobin 27 PG (27-34); Mean Corpuscular Volume 83.4 FL (87-102); Mean Platelet Volume 10.9 FL (9.6-12.0); Monocytes # 0.9 10*3/uL (0.11-0.8); Monocytes % 7.8 % (1.7-12.7); Neutrophils # 7.1 10*3/uL (1.4-7.4); Neutrophils % 65.3 % (38.7-73.9); Platelet Count 206 T/CUMM (130-400); Red Blood Count 4.51 MC/CUMM (3.8-5.5); Red Cell Distribution Width 13.5 % (9.3-17.3); White Blood Count 10.9 T/CUMM (4-12)
[2016-12-26 07:28] LABS: Calcium 8.2 MG/DL (8.5-10.1); Osmolality,Calculated 285.8 MOS/KG (273-304); Potassium 4.2 MMOL/L (3.5-5.1)
--- NOTE | 2016-12-26 10:20 | Internal Med Progress Note ---
Assessment and Plan (1) Nausea Status: Acute Assessment and plan: 71-year-old male admitted to acute care * Intractable nausea. This is probably secondary to CVA. * Recent CVA. Left-sided weakness * Hypertension. Stable * Diabetes. Continue current treatment * Discussed with . He will go to swing bed in the morning Current Visit: Yes (2) Vomiting Status: Acute Current Visit: Yes (3) Acute CVA (cerebrovascular accident) Status: Acute Current Visit: No (4) Alzheimer's dementia Status: Chronic Current Visit: No (5) Hyperlipidemia Status: Chronic Current Visit: No (6) Hypertension Status: Chronic Current Visit: No (7) Hypothyroidism Status: Chronic Current Visit: No Internal Medicine - PN: Subj Interval history: He is feeling better this morning. He has been eating fairly well. He gets nauseated when he gets up. He might be getting dizzy instead of nauseated and has difficulty expressing because of his stroke and dementia Exam (Progress Note) - Constitutional Vitals: Period Temp Pulse Resp BP Sys/Garza Pulse Ox Last 24 Hr 97.4 F-98.5 F 60-75 20-20 114-160/54-86 95-97 General appearance: normal weight - Head Head exam: Present: normal inspection - Eye Eye exam: Present: EOMI Pupils: Present: DARYL - Neck Neck exam: Present: normal inspection - Respiratory Respiratory exam: Present: clear to auscultation bilaterally - Cardiovascular Cardiovascular exam: Present: regular rate and rhythm - GI/Abdominal GI/Abdominal exam: Present: normal bowel sounds, soft. Absent: tenderness - Extremities Exam Extremities exam: Present: normal inspection. Absent: edema - Neurological Exam Neurological exam: Present: alert (Left hemiplegia), oriented X3, other (no gross focal signs ) Results - Labs CBC & BMP: 12/26/16 04:26 12/26/16 04:26 Lab Results: I have reviewed the past 24 hour labs Quality Measures - Stroke Onset of Symptoms Date: 12/20/16
[2016-12-26] MEDS: INSULIN LISPRO 100 UNIT/ML SUBCUT SCH ×7 (10:45→21:31)
[2016-12-26] MEDS: SERTRALINE 100 MG TABLET PO SCH (10:49)
[2016-12-26] MEDS: CLOPIDOGREL 75 MG TABLET PO SCH (10:49)
[2016-12-26] MEDS: ROSUVASTATIN 10 MG TABLET PO SCH (10:49)
[2016-12-26] MEDS: DOCUSATE SODIUM 100 MG CAPSULE PO SCH ×3 (10:49→21:39)
[2016-12-26] MEDS: CARVEDILOL 25 MG TABLET PO SCH ×2 (10:49→21:29)
[2016-12-26] MEDS: ASPIRIN EC 81 MG TABLET PO SCH (10:49)
[2016-12-26] MEDS: CYANOCOBALAMIN 500 MCG TABLET PO SCH (10:49)
[2016-12-26] MEDS: BRIMONIDINE 0.1% OPH SOLN 5 ML BOTTLE BOTH EYES SCH ×3 (10:50→21:30)
[2016-12-26] MEDS: amLODIPine 10 MG TABLET PO SCH (10:52)
--- NOTE | 2016-12-26 13:25 | Gastrointestinal Progress Note ---
Assessment and Plan (1) Nausea and vomiting Status: Acute Assessment and plan: I am covering this patient for Dr. Love who is off this weekend. The patient is having mild residual nausea approximately approximately 4 out of 10 in intensity. He does not like the food here at the hospital is having some brought in by family member. He has no epigastric tenderness, reflux, or other GI complaints. He does not have any residual dysphagia but had previously had a esophageal stricture that required dilation. 12/26/16--nausea slowly improving. Still not having any further difficulty with food getting stuck as it goes down. The patient is having some nausea with change in position. It is possible stroke may have affected the cerebellar region versus middle ear, versus autonomic destabilization. Current Visit: Yes (2) History of esophageal stricture Status: Acute Assessment and plan: No further dysphagia at this time, no repeated dilation required. 12/26/16--patient's admits that he is having some ongoing dysphagia symptoms. Current Visit: Yes (3) Hiatal hernia Status: Acute Assessment and plan: Reflux is currently under control. 12/26/16 reflux remains under control. Current Visit: Yes Gastroenterology - PN: Subj Interval history: His is a bit concerned that he is not been up out of bed more. They are due to go to a rehab facility tomorrow considering the recent stroke. The patient is not complaining of any further nausea or vomiting. Exam (Progress Note) - Constitutional Vitals: Period Temp Pulse Resp BP Sys/Garza Pulse Ox Last 24 Hr 97.1 F-98.5 F 60-75 18-20 114-160/54-76 95-97 General appearance: no acute distress - Head Head exam: Present: normocephalic - Eye Eye exam: Present: EOMI Pupils: Present: DARYL - ENT ENT exam: Present: other (Left-sided facial droop) - Respiratory Respiratory exam: Present: clear to auscultation bilaterally. Absent: rhonchi, stridor, wheezes - Cardiovascular Cardiovascular exam: Present: regular rate and rhythm - GI/Abdominal GI/Abdominal exam: Present: normal bowel sounds, soft. Absent: distended, guarding, tenderness, rebound - Extremities Exam Extremities exam: Present: edema - Neurological Exam Neurological exam: Present: alert, oriented X3, other (She appears to have a left-sided hemiparesis. Slight facial droop on the left side of the face as well.) - Psychiatric Psychiatric exam: Present: normal affect, normal mood - Skin Skin exam: Present: warm Results - Labs CBC & BMP: 12/26/16 04:26 12/26/16 04:26
[2016-12-26] MEDS: ONDANSETRON 4 MG/2 ML VIAL IV PRN (19:43)
[2016-12-26] MEDS: ZALEPLON 5 MG CAPSULE PO SCH (21:29)
[2016-12-26] MEDS: LATANOPROST 0.005% OPH SOLN 2.5 ML BOTTLE BOTH EYES SCH (21:30)
[2016-12-26] MEDS: INSULIN GLARGINE 100 UNIT/ML SUBCUT SCH (21:34)
[2016-12-27] MEDS: INSULIN LISPRO 100 UNIT/ML SUBCUT SCH ×4 (09:15→15:11)
[2016-12-27] MEDS: CLOPIDOGREL 75 MG TABLET PO SCH (09:17)
[2016-12-27] MEDS: amLODIPine 10 MG TABLET PO SCH (09:17)
[2016-12-27] MEDS: CYANOCOBALAMIN 500 MCG TABLET PO SCH (09:17)
[2016-12-27] MEDS: ASPIRIN EC 81 MG TABLET PO SCH (09:17)
[2016-12-27] MEDS: DOCUSATE SODIUM 100 MG CAPSULE PO SCH (09:18)
[2016-12-27] MEDS: CARVEDILOL 25 MG TABLET PO SCH (09:18)
[2016-12-27] MEDS: ROSUVASTATIN 10 MG TABLET PO SCH (09:18)
[2016-12-27] MEDS: SERTRALINE 100 MG TABLET PO SCH (09:18)
--- NOTE | 2016-12-27 10:36 | Discharge Summary ---
Hospital Course - Hospital Course Hospital Course: Patient came in the hospital with nausea and vomiting. 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 Prior to that he had a stent placed in length in his coronary arteries. He also has hypertension diabetes. There is felt that his nausea vomiting is probably related to Brilinta he had been known. We did stop him hold this medication during the course of the hospital, and he did resolve but we put him on Plavix and he tolerated this much better. We attempted to get him into rehab on Tuesday but had difficulty getting insurance to do this and waited a few more days and they allow him to go subsequently. Nonetheless he was discharged at that time down to the rehab unit. Inadvertently, we continued his Brilinta when he went to the rehab unit however the admitting physician noticed this and did change it. (He never received a dose) Diagnosis - Discharge Diagnosis (1) Nausea Status: Acute (2) Acute CVA (cerebrovascular accident) Status: Acute (3) Alzheimer's dementia Status: Chronic (4) Cerebrovascular accident Status: Chronic (5) Diabetes Status: Chronic Specialty Discharge - Follow Up or Referrals Follow up with: Ayaz Dozier DO [Physician] - (post discharge fro rehab) Discharge Plan - Discharge Data Disposition: Disch/Xfer-Ip Rehab Fac Condition at Discharge: Stable Discharge Diet: diabetic diet Activity: as per physical therapy Hygiene: no restrictions Weight Bearing at Discharge: weight bear as tolerated Driving: not until seen by doctor Contact your physician if you experience:: fever over 101 - Discharge Medications New Acetaminophen Tab [Tylenol Tab] 500 mg PO Q4H PRN #0 tablet PRN Reason: Fever, Headache, Mild Pain Dextrose 50% [D50] 25 gm IV PRN PRN #0 vial PRN Reason: Hypoglycemia with IV access Continue Insulin Aspart [NovoLOG] 16 unit SUBCUT TID W/MEALS Latanoprost [Latanoprost 0.005 % Oph Soln] 1 drop BOTH EYES BEDTIME Carvedilol [Coreg] 25 mg PO BID Cyanocobalamin (Vitamin B-12) [Vitamin B-12] 1,000 mcg PO DAILY Aspirin EC Tab 81 mg PO DAILY #30 tablet Brimonidine 0.1% Oph Soln [Alphagan P 0.1% Oph Soln] 1 drop BOTH EYES TID Docusate Sodium Cap [Colace Cap] 100 mg PO BID capsule Insulin Regular [HumuLIN R] See Protocol SUBCUT ACHS unit Lactulose Liquid [Chronulac] 10 gm PO DAILY PRN #0 PRN Reason: Indigestion Sertraline [Zoloft] 100 mg PO DAILY tablet Zaleplon [Sonata] 5 mg PO BEDTIME capsule amLODIPine [Norvasc] 10 mg PO DAILY tablet Insulin Glargine,Hum.rec.anlog [Touana Penning[place]oStar] 56 units SUBCUT BEDTIME Ticagrelor [Brilinta] 90 mg PO BID #60 tablet Rosuvastatin Calcium 10 mg PO DAILY #0 - Follow Up or Referral Follow Up: Ayaz Dozier DO [Physician] - (post discharge fro rehab) - Forms/Instructions Exam - Constitutional Vitals: Period Temp Pulse Resp BP Sys/Garza Pulse Ox Last 24 Hr 97.3 F-97.9 F 62-73 20-20 131-153/63-83 93-97 Discharge Results Labs on day of discharge: Labs from last 24 hours 12/27/16 12/26/16 12/26/16 08:10 21:00 16:47 POC Glucose 82 121 H 134 H 12/26/16 12/26/16 10:26 08:36 POC Glucose 178 H 86 DS: Provider Date of admission: 12/22/16 14:28 Primary care physician: . No PCP Attending physician on admission: Ayaz Dozier DO Consults: 12/22/16 15:55 Consult to Case Mgmt/Social Srvs [CONS] Routine Reason for Case Mgmt/Social Srvs: Discharge Planning Consult to Physician [CONS] Routine Comment: Nausea, Anorexia Consulting Provider: Patrick Love Person Notified: JANE Date Notified: 12/22/16 Time Notified: 16:11 12/22/16 15:58 Consult to Pharmacy [CONS] Routine Reason for Pharmacy Consult: Adjust Meds Renal Funct 12/22/16 17:15 Consult to Physician [CONS] Routine Comment: recurrent nausea Consulting Provider: [facility] Consult Notification Comment: see previous consult/Ivan 12/24/16 09:35 Consult to Occupational Therapy [CONS] Routine Reason for Occupational Therapy: Weakness Start Therapy: Today Consult to Physical Therapy [CONS] Routine Reason for Physical Therapy: Evaluate and Treat Start Therapy: Today Discharging clinician: Ayza Dozier DO
[2016-12-27 15:01] VITALS: BP 133/70
[2016-12-27] MEDS: BRIMONIDINE 0.1% OPH SOLN 5 ML BOTTLE BOTH EYES SCH (15:15)
[2016-12-27] MEDS: SODIUM CHLORIDE 0.9% 1,000 ML IV SCH (15:16)
== END 2016-12-27 12:45 | DRG 392 ==
LOC: EDUNIT# → EDBD → N.ED 12:28 → N.EDINP 14:28 → N.2E 15:30
PROVIDERS: ADMIT Family Medicine; ATTEND Family Medicine

== ENCOUNTER 2017-06-27 22:22 | Observation (INO) ==
[2017-06-27] MEDS ORDERED: ONDANSETRON 4 MG/2 ML VIAL ONE (22:47)
[2017-06-27] MEDS ORDERED: ONDANSETRON 4 MG/2 ML VIAL IV STA (23:12)
[2017-06-27] MEDS ORDERED: METOCLOPRAMIDE 10 MG/2 ML VIAL IV STA (23:59)
[2017-06-27] MEDS ORDERED: diphenhydrAMINE 50 MG/1 ML VIAL IV STA (23:59)
[2017-06-28] MEDS ORDERED: METOCLOPRAMIDE 10 MG/2 ML VIAL ONE (00:03)
[2017-06-28] MEDS ORDERED: diphenhydrAMINE 50 MG/1 ML VIAL ONE (00:04)
[2017-06-28 00:12] LABS: Basophils % 0.3 % (0.0-0.8); Eosinophils % 0.2 % (0.00-10.9); Hematocrit 38.5 VOL% (42.0-52.0); Hemoglobin 12.8 GM/DL (14.0-18.0); Immature Granulocytes % 0.4 %; Immature Granulocytes Absolute 0.05 #; Lymphocytes # 1.9 10*3/uL (1.4-4.0); Lymphocytes % 14.1 % (21.2-54.2); Mean Corpuscular HGB Conc 33.2 GM/DL (32-36); Mean Corpuscular Hemoglobin 28 PG (27-34); Mean Corpuscular Volume 83.2 FL (87-102); Mean Platelet Volume 10.3 FL (9.6-12.0); Monocytes # 0.8 10*3/uL (0.11-0.8); Monocytes % 5.5 % (1.7-12.7); Neutrophils # 10.8 10*3/uL (1.4-7.4); Neutrophils % 79.5 % (38.7-73.9); Platelet Count 237 T/CUMM (130-400); Red Blood Count 4.63 MC/CUMM (3.8-5.5); Red Cell Distribution Width 13.3 % (9.3-17.3); White Blood Count 13.6 T/CUMM (4-12)
[2017-06-28 00:48] LABS: Albumin 3.5 G/DL (3.4-5.0); Bilirubin,Total 0.4 MG/DL (0.2-1.0); Calcium 8.9 MG/DL (8.5-10.1); Osmolality,Calculated 287.8 MOS/KG (273-304); Potassium 4.2 MMOL/L (3.5-5.1); Total Protein 7.2 G/DL (6.4-8.3)
[2017-06-28 10:38] LABS: Basophils % 0.2 % (0.0-0.8); Eosinophils % 0.1 % (0.00-10.9); Hemoglobin 11.9 GM/DL (14.0-18.0); Immature Granulocytes % 0.3 %; Immature Granulocytes Absolute 0.04 #; Lymphocytes # 1.8 10*3/uL (1.4-4.0); Lymphocytes % 13.4 % (21.2-54.2); Mean Corpuscular HGB Conc 33.1 GM/DL (32-36); Mean Corpuscular Hemoglobin 27 PG (27-34); Mean Corpuscular Volume 82.8 FL (87-102); Mean Platelet Volume 11.1 FL (9.6-12.0); Monocytes # 0.8 10*3/uL (0.11-0.8); Monocytes % 5.9 % (1.7-12.7); Neutrophils # 10.8 10*3/uL (1.4-7.4); Neutrophils % 80.1 % (38.7-73.9); Platelet Count 240 T/CUMM (130-400); Red Blood Count 4.35 MC/CUMM (3.8-5.5); Red Cell Distribution Width 13.4 % (9.3-17.3); White Blood Count 13.5 T/CUMM (4-12)
[2017-06-28] MEDS ORDERED: ACETAMINOPHEN 325 MG TABLET PO PRN (12:07)
[2017-06-28] MEDS ORDERED: ONDANSETRON 4 MG/2 ML VIAL IV PRN (12:07)
[2017-06-28] MEDS ORDERED: DEXTROSE 50% 25 GM/50 ML VIAL IV PRN ×2 (12:18→12:19)
[2017-06-28] MEDS ORDERED: GLUCAGON 1 MG VIAL IM PRN ×2 (12:18→12:19)
[2017-06-28] MEDS: CLOPIDOGREL 75 MG TABLET PO SCH (12:32)
[2017-06-28] MEDS: LATANOPROST 0.005% OPH SOLN 2.5 ML BOTTLE BOTH EYES SCH ×2 (12:32→21:08)
[2017-06-28] MEDS: BRIMONIDINE 0.1% OPH SOLN 5 ML BOTTLE BOTH EYES SCH ×2 (12:32→21:07)
[2017-06-28] MEDS: SERTRALINE 100 MG TABLET PO SCH (12:32)
[2017-06-28] MEDS: ROSUVASTATIN 20 MG TABLET PO SCH (12:32)
[2017-06-28] MEDS: ASPIRIN EC 81 MG TABLET PO SCH (12:32)
[2017-06-28] MEDS: SODIUM CHLORIDE 0.9% 1,000 ML IV SCH ×2 (13:08→22:18)
[2017-06-28] MEDS: CARVEDILOL 25 MG TABLET PO SCH (16:17)
[2017-06-28] MEDS: INSULIN LISPRO 100 UNIT/ML SUBCUT SCH ×3 (16:17→20:28)
[2017-06-28] MEDS ORDERED: PROMETHAZINE 25 MG/1 ML VIAL IM PRN (18:28)
[2017-06-28] MEDS: INSULIN GLARGINE 100 UNIT/ML SUBCUT SCH (20:27)
[2017-06-28] MEDS: DOCUSATE SODIUM 100 MG CAPSULE PO SCH (20:33)
[2017-06-28] MEDS: MEMANTINE 10 MG TABLET PO SCH (20:35)
[2017-06-28] MEDS ORDERED: ZALEPLON 5 MG CAPSULE PO PRN (21:45)
[2017-06-29 07:56] LABS: Basophils % 0.3 % (0.0-0.8); Eosinophils # 0.2 10*3/uL (0.0-0.87); Eosinophils % 1.5 % (0.00-10.9); Hematocrit 33.4 VOL% (42.0-52.0); Hemoglobin 10.9 GM/DL (14.0-18.0); Immature Granulocytes % 0.3 %; Immature Granulocytes Absolute 0.04 #; Lymphocytes # 2.4 10*3/uL (1.4-4.0); Lymphocytes % 20.6 % (21.2-54.2); Mean Corpuscular HGB Conc 32.6 GM/DL (32-36); Mean Corpuscular Hemoglobin 28 PG (27-34); Mean Corpuscular Volume 84.8 FL (87-102); Mean Platelet Volume 10.8 FL (9.6-12.0); Monocytes # 1.1 10*3/uL (0.11-0.8); Monocytes % 9.3 % (1.7-12.7); Neutrophils # 7.8 10*3/uL (1.4-7.4); Platelet Count 193 T/CUMM (130-400); Red Blood Count 3.94 MC/CUMM (3.8-5.5); Red Cell Distribution Width 13.2 % (9.3-17.3); White Blood Count 11.5 T/CUMM (4-12)
[2017-06-29 08:35] LABS: Albumin 2.9 G/DL (3.4-5.0); Bilirubin,Total 0.7 MG/DL (0.2-1.0); Calcium 8.1 MG/DL (8.5-10.1); Magnesium 1.8 MG/DL (1.8-2.4); Osmolality,Calculated 282.5 MOS/KG (273-304); Potassium 4.2 MMOL/L (3.5-5.1); Total Protein 5.9 G/DL (6.4-8.3)
[2017-06-29] MEDS: INSULIN LISPRO 100 UNIT/ML SUBCUT SCH ×7 (08:51→22:20)
[2017-06-29] MEDS: BRIMONIDINE 0.1% OPH SOLN 5 ML BOTTLE BOTH EYES SCH ×2 (08:51→22:21)
[2017-06-29] MEDS: CARVEDILOL 25 MG TABLET PO SCH ×2 (08:51→17:15)
[2017-06-29] MEDS: ASPIRIN EC 81 MG TABLET PO SCH (08:52)
[2017-06-29] MEDS: MEMANTINE 10 MG TABLET PO SCH ×2 (08:52→22:21)
[2017-06-29] MEDS: DOCUSATE SODIUM 100 MG CAPSULE PO SCH ×2 (08:52→22:21)
[2017-06-29] MEDS: ROSUVASTATIN 20 MG TABLET PO SCH (08:52)
[2017-06-29] MEDS: PANTOPRAZOLE 40 MG TABLET PO SCH (08:54)
[2017-06-29] MEDS: LATANOPROST 0.005% OPH SOLN 2.5 ML BOTTLE BOTH EYES SCH ×2 (08:54→22:21)
[2017-06-29] MEDS: SERTRALINE 100 MG TABLET PO SCH (08:54)
[2017-06-29] MEDS ORDERED: METOCLOPRAMIDE 10 MG/2 ML VIAL IV ONE (09:00)
[2017-06-29] MEDS: CLOPIDOGREL 75 MG TABLET PO SCH (09:11)
[2017-06-29] MEDS: SODIUM CHLORIDE 0.9% 1,000 ML IV SCH ×2 (12:17→21:04)
[2017-06-29] MEDS: INSULIN GLARGINE 100 UNIT/ML SUBCUT SCH (22:21)
[2017-06-30 06:30] LABS: Basophils % 0.3 % (0.0-0.8); Eosinophils # 0.4 10*3/uL (0.0-0.87); Eosinophils % 4.1 % (0.00-10.9); Hematocrit 32.7 VOL% (42.0-52.0); Hemoglobin 10.5 GM/DL (14.0-18.0); Immature Granulocytes % 0.2 %; Immature Granulocytes Absolute 0.02 #; Lymphocytes # 2.4 10*3/uL (1.4-4.0); Lymphocytes % 26.3 % (21.2-54.2); Mean Corpuscular HGB Conc 32.1 GM/DL (32-36); Mean Corpuscular Hemoglobin 28 PG (27-34); Mean Corpuscular Volume 86.3 FL (87-102); Mean Platelet Volume 10.5 FL (9.6-12.0); Monocytes # 0.8 10*3/uL (0.11-0.8); Monocytes % 8.5 % (1.7-12.7); Neutrophils # 5.4 10*3/uL (1.4-7.4); Neutrophils % 60.6 % (38.7-73.9); Platelet Count 170 T/CUMM (130-400); Red Blood Count 3.79 MC/CUMM (3.8-5.5); Red Cell Distribution Width 13.2 % (9.3-17.3); White Blood Count 8.9 T/CUMM (4-12)
[2017-06-30] MEDS: SODIUM CHLORIDE 0.9% 1,000 ML IV SCH (06:40)
[2017-06-30] MEDS: CARVEDILOL 25 MG TABLET PO SCH (08:54)
[2017-06-30] MEDS: BRIMONIDINE 0.1% OPH SOLN 5 ML BOTTLE BOTH EYES SCH (08:54)
[2017-06-30] MEDS: ROSUVASTATIN 20 MG TABLET PO SCH (08:55)
[2017-06-30] MEDS: MEMANTINE 10 MG TABLET PO SCH (08:55)
[2017-06-30] MEDS: SERTRALINE 100 MG TABLET PO SCH (08:55)
[2017-06-30] MEDS: LATANOPROST 0.005% OPH SOLN 2.5 ML BOTTLE BOTH EYES SCH (08:55)
[2017-06-30] MEDS: CLOPIDOGREL 75 MG TABLET PO SCH (08:55)
[2017-06-30] MEDS: PANTOPRAZOLE 40 MG TABLET PO SCH (08:55)
[2017-06-30] MEDS: ASPIRIN EC 81 MG TABLET PO SCH (08:55)
[2017-06-30] MEDS: DOCUSATE SODIUM 100 MG CAPSULE PO SCH (08:55)
[2017-06-30] MEDS: INSULIN LISPRO 100 UNIT/ML SUBCUT SCH ×4 (09:36→12:25)
[2017-06-30] MEDS ORDERED: GLUCAGON 1 MG VIAL IM PRN (10:10)
[2017-06-30] MEDS ORDERED: DEXTROSE 50% 25 GM/50 ML VIAL IV PRN (10:10)
[2017-06-30 11:42] VITALS: BP 156/70
== END 2017-06-30 12:10 | disposition home health service (06) ==
LOC: EDUNIT# → EDBD → N.ED 22:22 → N.2E 06-28 03:53 → INTOOBSV 06-28 04:50 → N.2E 06-28 04:50
PROVIDERS: ADMIT Family Medicine; ATTEND Family Medicine

== ENCOUNTER 2018-06-17 10:19 | Inpatient (IN) ==
[2018-06-17 11:09] LABS: Basophils % 0.5 % (0.0-0.8); Eosinophils # 0.4 10*3/uL (0.0-0.87); Eosinophils % 4.5 % (0.00-10.9); Immature Granulocytes % 0.2 %; Immature Granulocytes Absolute 0.02 #; Lymphocytes # 1.9 10*3/uL (1.4-4.0); Lymphocytes % 21.6 % (21.2-54.2); Mean Corpuscular HGB Conc 32.5 GM/DL (32-36); Mean Corpuscular Hemoglobin 28 PG (27-34); Mean Platelet Volume 10.3 FL (9.6-12.0); Monocytes # 0.7 10*3/uL (0.11-0.8); Monocytes % 7.5 % (1.7-12.7); Neutrophils # 5.7 10*3/uL (1.4-7.4); Neutrophils % 65.7 % (38.7-73.9); Platelet Count 209 T/CUMM (130-400); Red Blood Count 4.65 MC/CUMM (3.8-5.5); Red Cell Distribution Width 13.3 % (9.3-17.3); White Blood Count 8.7 T/CUMM (4-12)
[2018-06-17 11:11] LABS: Amorphous Crystals,Urine Occasional /HPF (Few); Apearance,Urine CLOUDY (Clear); Bacteria,Urine Many /HPF (Few); Bilirubin,Urine Negative (Negative); Blood, Urine Large mg/dL (Negative); Glucose,Urine (UA) Negative (Negative); Ketones,Urine Negative (Negative); Mucus,Urine Few /LPF (Occasional); Nitrite,Urine Negative (Negative); Protein,Urine 100 MG/DL; RBC,Urine 5315 /HPF (0-4); Urine Color Red (Yellow); Urine Specific Gravity 1.016 (1.001-1.035); Urine Urobilinogen < 2.0 EU/DL (0.2-1.0); WBC,Urine 2829 /HPF (0-6)
[2018-06-17 11:14] LABS: PT Patient Result 10.2 SECS; Partial Thromboplastin Time 26.1 SECS (0-40)
[2018-06-17 11:21] LABS: Albumin 2.8 G/DL (3.4-5.0); Bilirubin,Total 0.4 MG/DL (0.2-1.0); Calcium 8.4 MG/DL (8.5-10.1); Osmolality,Calculated 288.1 MOS/KG (273-304); Potassium 4.5 MMOL/L (3.5-5.1); Total Protein 6.5 G/DL (6.4-8.3)
[2018-06-17] MEDS ORDERED: BISACODYL 5 MG TABLET PO PRN (12:33)
[2018-06-17] MEDS ORDERED: ONDANSETRON 4 MG/2 ML VIAL IV PRN (12:33)
[2018-06-17] MEDS ORDERED: ACETAMINOPHEN 325 MG TABLET PO PRN (12:33)
[2018-06-17] MEDS ORDERED: GLUCAGON 1 MG VIAL IM PRN (12:57)
[2018-06-17] MEDS ORDERED: DEXTROSE 50% 25 GM/50 ML VIAL IV PRN (12:57)
[2018-06-17] MEDS ORDERED: INFLUENZA VIRUS VACCINE 0.5 ML SYRINGE IM ONE (13:45)
[2018-06-17] MEDS: SODIUM CHLORIDE 0.9% 1,000 ML IV SCH (14:04)
[2018-06-17] MEDS: cefTRIAXone 1,000 MG in SYRINGE 1 EACH IV SCH (14:05)
[2018-06-17] MEDS ORDERED: hydrALAZINE 20 MG/1 ML VIAL IV ONE (16:10)
[2018-06-17] MEDS ORDERED: hydrALAZINE 20 MG/1 ML VIAL IV PRN (16:10)
[2018-06-17] MEDS: INSULIN REGULAR 100 UNIT/ML SUBCUT SCH ×2 (17:51→21:05)
[2018-06-17] MEDS: INSULIN LISPRO 100 UNIT/ML SUBCUT SCH (17:51)
[2018-06-17] MEDS: CARVEDILOL 25 MG TABLET PO SCH (17:51)
[2018-06-17] MEDS: MEMANTINE 10 MG TABLET PO SCH (21:04)
[2018-06-17] MEDS: DOCUSATE SODIUM 100 MG CAPSULE PO SCH (21:04)
[2018-06-17] MEDS: INSULIN GLARGINE 100 UNIT/ML SUBCUT SCH (21:05)
[2018-06-17] MEDS: BRIMONIDINE 0.1% OPH SOLN 5 ML BOTTLE BOTH EYES SCH (21:41)
[2018-06-17] MEDS: LATANOPROST 0.005% OPH SOLN 2.5 ML BOTTLE BOTH EYES SCH (21:41)
[2018-06-18] MEDS: SODIUM CHLORIDE 0.9% 1,000 ML IV SCH ×2 (02:20→17:59)
[2018-06-18 06:30] LABS: Basophils % 0.4 % (0.0-0.8); Eosinophils # 0.4 10*3/uL (0.0-0.87); Eosinophils % 4.1 % (0.00-10.9); Hematocrit 38.8 VOL% (42.0-52.0); Hemoglobin 12.4 GM/DL (14.0-18.0); Immature Granulocytes % 0.4 %; Immature Granulocytes Absolute 0.04 #; Lymphocytes # 2.1 10*3/uL (1.4-4.0); Lymphocytes % 23.2 % (21.2-54.2); Mean Corpuscular Hemoglobin 28 PG (27-34); Mean Platelet Volume 10.8 FL (9.6-12.0); Monocytes # 0.7 10*3/uL (0.11-0.8); Monocytes % 7.8 % (1.7-12.7); Neutrophils # 5.7 10*3/uL (1.4-7.4); Neutrophils % 64.1 % (38.7-73.9); Platelet Count 164 T/CUMM (130-400); Red Blood Count 4.41 MC/CUMM (3.8-5.5); Red Cell Distribution Width 13.7 % (9.3-17.3); White Blood Count 8.9 T/CUMM (4-12)
[2018-06-18 06:56] LABS: Platelet Estimate Normal
[2018-06-18 06:59] LABS: Calcium 8.3 MG/DL (8.5-10.1); Osmolality,Calculated 286.1 MOS/KG (273-304); Potassium 4.6 MMOL/L (3.5-5.1)
[2018-06-18] MEDS: INSULIN REGULAR 100 UNIT/ML SUBCUT SCH ×4 (09:03→21:46)
[2018-06-18] MEDS: INSULIN LISPRO 100 UNIT/ML SUBCUT SCH ×3 (09:04→16:56)
[2018-06-18] MEDS: CARVEDILOL 25 MG TABLET PO SCH ×2 (09:46→16:56)
[2018-06-18] MEDS: BRIMONIDINE 0.1% OPH SOLN 5 ML BOTTLE BOTH EYES SCH ×2 (09:46→20:52)
[2018-06-18] MEDS: MEMANTINE 10 MG TABLET PO SCH ×2 (09:46→21:46)
[2018-06-18] MEDS: DOCUSATE SODIUM 100 MG CAPSULE PO SCH ×2 (09:46→20:52)
[2018-06-18] MEDS: PANTOPRAZOLE 40 MG TABLET PO SCH (09:47)
[2018-06-18] MEDS: SERTRALINE 100 MG TABLET PO SCH (09:47)
[2018-06-18] MEDS: cefTRIAXone 1,000 MG in SYRINGE 1 EACH IV SCH (13:14)
[2018-06-18] MEDS: hydrALAZINE 25 MG TABLET PO SCH ×2 (13:14→20:52)
[2018-06-18] MEDS: LATANOPROST 0.005% OPH SOLN 2.5 ML BOTTLE BOTH EYES SCH (20:52)
[2018-06-18] MEDS: INSULIN GLARGINE 100 UNIT/ML SUBCUT SCH (20:56)
[2018-06-19 05:56] LABS: Basophils % 0.4 % (0.0-0.8); Eosinophils # 0.4 10*3/uL (0.0-0.87); Eosinophils % 4.3 % (0.00-10.9); Hematocrit 36.6 VOL% (42.0-52.0); Hemoglobin 11.2 GM/DL (14.0-18.0); Immature Granulocytes % 0.2 %; Immature Granulocytes Absolute 0.02 #; Lymphocytes # 2.1 10*3/uL (1.4-4.0); Lymphocytes % 26.2 % (21.2-54.2); Mean Corpuscular HGB Conc 30.6 GM/DL (32-36); Mean Corpuscular Hemoglobin 27 PG (27-34); Mean Corpuscular Volume 88.2 FL (87-102); Mean Platelet Volume 10.9 FL (9.6-12.0); Monocytes # 0.6 10*3/uL (0.11-0.8); Monocytes % 7.4 % (1.7-12.7); Neutrophils % 61.5 % (38.7-73.9); Platelet Count 175 T/CUMM (130-400); Red Blood Count 4.15 MC/CUMM (3.8-5.5); Red Cell Distribution Width 13.9 % (9.3-17.3); White Blood Count 8.2 T/CUMM (4-12)
[2018-06-19 06:12] LABS: Osmolality,Calculated 289.1 MOS/KG (273-304); Potassium 4.2 MMOL/L (3.5-5.1)
[2018-06-19] MEDS: SODIUM CHLORIDE 0.9% 1,000 ML IV SCH ×2 (06:50→20:10)
[2018-06-19] MEDS: INSULIN REGULAR 100 UNIT/ML SUBCUT SCH ×4 (07:32→21:04)
[2018-06-19] MEDS: hydrALAZINE 25 MG TABLET PO SCH ×2 (08:19→21:04)
[2018-06-19] MEDS: TAMSULOSIN 0.4 MG CAPSULE PO SCH (08:19)
[2018-06-19] MEDS: PANTOPRAZOLE 40 MG TABLET PO SCH (08:19)
[2018-06-19] MEDS: SERTRALINE 100 MG TABLET PO SCH (08:19)
[2018-06-19] MEDS: INSULIN LISPRO 100 UNIT/ML SUBCUT SCH ×3 (08:19→17:31)
[2018-06-19] MEDS: MEMANTINE 10 MG TABLET PO SCH ×2 (08:19→21:03)
[2018-06-19] MEDS: CARVEDILOL 25 MG TABLET PO SCH ×2 (08:19→17:31)
[2018-06-19] MEDS: DOCUSATE SODIUM 100 MG CAPSULE PO SCH ×2 (08:19→21:04)
[2018-06-19] MEDS: cefTRIAXone 1,000 MG in SYRINGE 1 EACH IV SCH (08:20)
[2018-06-19] MEDS: BRIMONIDINE 0.1% OPH SOLN 5 ML BOTTLE BOTH EYES SCH ×2 (08:20→21:04)
[2018-06-19] MEDS: LATANOPROST 0.005% OPH SOLN 2.5 ML BOTTLE BOTH EYES SCH (21:04)
[2018-06-19] MEDS: INSULIN GLARGINE 100 UNIT/ML SUBCUT SCH (21:04)
[2018-06-20 05:38] LABS: INR 0.9
[2018-06-20] MEDS: INSULIN REGULAR 100 UNIT/ML SUBCUT SCH (07:37)
[2018-06-20] MEDS: TAMSULOSIN 0.4 MG CAPSULE PO SCH (09:00)
[2018-06-20] MEDS: CARVEDILOL 25 MG TABLET PO SCH (09:00)
[2018-06-20] MEDS: SERTRALINE 100 MG TABLET PO SCH (09:00)
[2018-06-20] MEDS: PANTOPRAZOLE 40 MG TABLET PO SCH (09:00)
[2018-06-20] MEDS: INSULIN LISPRO 100 UNIT/ML SUBCUT SCH ×2 (09:00→13:25)
[2018-06-20] MEDS ORDERED: ASPIRIN EC 81 MG TABLET PO SCH (09:00)
[2018-06-20] MEDS ORDERED: ENOXAPARIN 40 MG/0.4 ML SYRINGE SUBCUT SCH (09:00)
[2018-06-20] MEDS: BRIMONIDINE 0.1% OPH SOLN 5 ML BOTTLE BOTH EYES SCH (09:01)
[2018-06-20] MEDS: DOCUSATE SODIUM 100 MG CAPSULE PO SCH (09:01)
[2018-06-20] MEDS: hydrALAZINE 25 MG TABLET PO SCH (09:01)
[2018-06-20] MEDS: MEMANTINE 10 MG TABLET PO SCH (09:01)
[2018-06-20] MEDS: cefTRIAXone 1,000 MG in SYRINGE 1 EACH IV SCH (09:08)
[2018-06-20] MEDS: SODIUM CHLORIDE 0.9% 1,000 ML IV SCH (09:26)
[2018-06-20] MEDS ORDERED: INSULIN LISPRO 100 UNIT/ML SUBCUT SCH (11:30)
[2018-06-20 11:51] VITALS: BP 163/79
[2018-06-21] MEDS ORDERED: CLOPIDOGREL 75 MG TABLET PO SCH (09:00)
== END 2018-06-20 15:58 | disposition home health service (06) | DRG 690 ==
LOC: EDBD → EDUNIT# → N.ED 10:19 → N.EDINP 10:19 → N.2E 13:27
PROVIDERS: ADMIT Family Medicine; ATTEND Family Medicine